=== PATIENT | male | born 1955 | race Caucasian/White ===

== ENCOUNTER 2019-04-02 05:41 | Day surgery (SDC) | payer MEDICARE ==
--- NOTE | 2019-04-01 13:02 | HP ---
HISTORY OF PRESENT ILLNESS: Mr. Mcdowell is a very pleasant 63-year-old gentleman, here for evaluation of chronic lower back pain and neck complaints. He has treated this in the past with physical therapy, home exercises, and multiple medications with only mild relief. His pain symptoms of neurogenic claudication. He brings an MRI on disk, revealing severe lumbar spinal stenosis from L4 through S1 that would fit well. He hopes to move forward with surgical decompression if feasible. PAST MEDICAL HISTORY: Significant for hypertension, gout, neuropathy, diabetes, and hypothyroidism. CURRENT MEDICATIONS: 1. Aspirin. 2. Nitroglycerin. 3. Metformin. 4. . 5. Levothyroxine. 6. Indomethacin. 7. Gemfibrozil. 8. Gabapentin. 9. Simvastatin. 10. Allopurinol. 11. Carvedilol. 12. Lisinopril. PAST SURGICAL HISTORY: Cardiac stents x2, none others are listed. ALLERGIES: NO KNOWN DRUG ALLERGIES. PHYSICAL EXAMINATION: The patient is alert and oriented x3. Gait is severely antalgic and slowed as well as stooped in posture. ASSESSMENT: Lumbar spinal stenosis with neurogenic claudication. PLAN: Dr. Sanchez met with the patient, reviewed imaging, advocated for lumbar decompression from L4 through S1. He explained to the patient the risks, benefits, and alternatives to the procedure. The patient expressed understanding and elected to move froward with surgery as discussed. I do believe that the patient is mentally competent and capable of making medical decisions for himself. We will move forward with surgery as planned. Job ID: [id number]
[2019-04-02] MEDS ORDERED: Thrombin 5000 UNITS/5 ML VIAL ONE (06:12)
[2019-04-02] MEDS ORDERED: Bupivacaine PF 0.5% 30 ML VIAL ONE (06:12)
[2019-04-02 06:22] LABS: #Eosinphils 0.3 thou/uL (0.0-0.7); #Lymphocytes 2.1 thou/uL (1.20-3.40); #Monocytes 0.8 thou/uL (0.11-0.59); #Neutrophils 6.9 thou/uL (1.40-6.50); %Basophils 0.5 % (0.0-1.0); %Eosinophils 2.8 % (0.0-10.0); %Lymphocytes 20.7 % (21.0-51.0); %Monocytes 7.8 % (0.0-10.0); %Neutrophils 68.2 % (42.0-75.0); Hemoglobin 13.5 g/dL (14.0-18.0); Mean Corpuscular HGB CONC 34.4 g/dL (32.0-36.0); Mean Corpuscular Hemoglobin 33.5 pg (27.0-31.0); Mean Corpuscular Volume 97.5 fL (78.0-98.0); Mean Platelet Volume 7.2 fL (7.4-10.4); Platelet Count 259 thou/uL (130-400); Red Blood Cell (RBC) Count 4.02 mill/uL (4.70-6.10); White Blood Cell (WBC) Count 10.1 thou/uL (4.8-10.8)
[2019-04-02 06:47] LABS: Anion Gap 15 mmol/L (10-20); BUN (Urea Nitrogen) 9 mg/dL (8.4-25.7); Calc. Creatinine Clearance 15 mL/min (70-130); Calcium 9.6 mg/dL (7.8-10.44); Carbon Dioxide 22 mmol/L (23-31); Chloride 106 mmol/L (98-107); Estimated GFR-MDRD 88; Glucose 171 mg/dL (80-115); Potassium 4.3 mmol/L (3.5-5.1); Sodium 139 mmol/L (136-145)
[2019-04-02] MEDS ORDERED: Midazolam HCl 2 mg/2 ml Vial ONE (06:55)
[2019-04-02] MEDS ORDERED: Fentanyl 100 MCG/2 ML VIAL ONE (06:56)
--- NOTE | 2019-04-02 09:11 | OP ---
DATE OF PROCEDURE: 04/02/2019 DOCUMENT RESTORER: Eliud Pisano PA-C INDICATION: Pain. DIAGNOSIS: Lumbar stenosis with neurogenic claudication. PROCEDURE PERFORMED: L4 through S1 decompression. ANESTHESIA: General. DESCRIPTION OF PROCEDURE: The patient was brought into the operating room and placed under general anesthesia. He was flipped from the supine to prone position on the operating room table. A linear incision was planned spanning L4 through S1. After prepping and draping and after an appropriate preoperative pause, the incision was created. The soft tissues were swept away from midline. Self-retaining retractors were placed in the wound for optimal exposure. After confirming the appropriate level with C-arm fluoroscopy, an Adson rongeur was used to move the spinous process at L5, the inferior aspect of L4, and the superior aspect of S1. A high-speed cutting drill bit was then used to perform a laminectomy, spanning L4 through S1 laminectomy was completed using Kerrisons. The laminectomy was extended laterally to encompass the medial aspect of the facet joints in order to more adequately decompress the lateral recesses. The ligament and epidural fat were removed in order to decompress the spinal canal at both segments. After completing the decompression, the wound was irrigated. Hemostasis was maintained throughout. The wound was then closed in anatomic layers and a pressure dressing was applied. There were no known procedural complications. Job ID: [id number]
[2019-04-02] MEDS ORDERED: Tamsulosin HCl 0.4 MG CAP ONE (09:24)
[2019-04-02] MEDS ORDERED: Ketorolac Tromethamine 30 MG/ML VIAL ONE (09:49)
[2019-04-02] MEDS ORDERED: Ondansetron PF 4 MG/2 ML Vial ONE (09:49)
[2019-04-02] MEDS ORDERED: PROPOFOL 200 MG/20 ML VIAL ONE (09:49)
[2019-04-02] MEDS ORDERED: ePHEDrine/0.9% NaCl/PF SYRINGE 50 mg/10 ml ONE (09:49)
[2019-04-02] MEDS ORDERED: PHENYLEPHRINE-NS 100 MCG/ML 10 ML SYRINGE ONE (09:49)
[2019-04-02] MEDS ORDERED: Lidocaine 1% PF 5 ML VIAL ONE (09:49)
[2019-04-02] MEDS ORDERED: Glycopyrrolate 0.2 MG/ML 5 ML SYRINGE ONE (09:49)
[2019-04-02] MEDS ORDERED: Rocuronium Bromide 10 MG/ML (10ML VIAL) ONE (09:49)
[2019-04-02] MEDS ORDERED: Acetaminophen/Codeine 30-300mg Tablet ONE (12:12)
--- NOTE | 2019-04-04 15:18 | EKG ---
Test Reason : PREOP Blood Pressure : / mmHG Vent. Rate : 071 BPM Atrial Rate : 071 BPM P-R Int : 160 ms QRS Dur : 084 ms QT Int : 350 ms P-R-T Axes : 045 042 186 degrees QTc Int : 380 ms Normal sinus rhythm T wave abnormality, consider inferolateral ischemia Abnormal ECG Confirmed by DR. Sotero YOUNG ([id number]) on 04/04/2019 3:18:19 PM Referred By: ORA Confirmed By:DR. Sotero YOUNG
== END 2019-04-02 12:40 | disposition home or self-care (01) ==
LOC: SDC 05:41
PROVIDERS: ATTEND Neurological Surgery
PROC: 01NB0ZZ Release Lumbar Nerve, Open Approach (ICD-10-PCS; principal; 2019-04-02)
DX: M48.062 Spinal stenosis, lumbar region with neurogenic claudication (principal); G89.29 Other chronic pain; M54.5 Low back pain; I10 Essential (primary) hypertension; E11.40 Type 2 diabetes mellitus with diabetic neuropathy, unspecified; E03.9 Hypothyroidism, unspecified; E78.5 Hyperlipidemia, unspecified; I25.10 Atherosclerotic heart disease of native coronary artery without angina pectoris; F17.210 Nicotine dependence, cigarettes, uncomplicated; Z79.82 Long term (current) use of aspirin; Z79.84 Long term (current) use of oral hypoglycemic drugs; Z79.899 Other long term (current) drug therapy; Z95.5 Presence of coronary angioplasty implant and graft
CPT/HCPCS: 36415; 76000; 80048; 85025; 93005; 93010; J0690; J1885; J2001; J2250; J2405; J2704; J3010; J7620; S0020